=== PATIENT | male | born 1945 ===

== ENCOUNTER 2025-02-28 15:45 | Outpatient (REF) | payer MEDICARE, SELFPAY ==
[2025-02-28 16:08] LABS: HCT 35.9 % (40.0-50.0); HGB 11.7 g/dL (13.5-17.5); MCH 29.3 pg (27.0-33.0); MCHC 32.6 % (32.0-36.0); MCV 90 fL (80-95); MPV 8.4 fL (8.0-11.0); Platelet Count 458 10^3/uL (130-400); RDW 12.2 % (11.8-14.1); RDW-SD 40.1 fL; WBC 8.43 10^3/uL (4.4-10.8)
[2025-02-28 16:28] LABS: Hemoglobin A1C 6.1 % (<5.7)
[2025-02-28 16:43] LABS: ALT 95 U/L (16-63); AST 58 U/L (15-37); Albumin 2.8 g/dL (3.4-5.0); Alkaline Phosphatase 119 U/L (46-116); Bilirubin, Direct 0.2 mg/dL (0.0-0.2); Bilirubin, Total 0.6 mg/dL (0.2-1.0); Total Protein 6.5 g/dL (6.4-8.2)
== END 2025-02-28 15:46 | disposition home or self-care (01) ==
LOC: LBN 15:45
PROVIDERS: Visit Provider Internal Medicine
DX: I10 Essential (primary) hypertension (principal); E66.9 Obesity, unspecified
CPT/HCPCS: 80076; 85027; 83036; 84550